=== PATIENT | female | born 1955 | race Caucasian/White ===

== ENCOUNTER 2020-06-18 08:01 | Day surgery (SDC) | payer OTHER, SELFPAY ==
[~2020-06-18] VITALS: Ht 147.3 cm; Wt 41.7 kg
[2020-06-18] MEDS ORDERED: fentaNYL citrate 0.05 MG/ML VIAL ONE (10:08)
[2020-06-18] MEDS ORDERED: LIDOCAINE 2% 100 MG/5 ML UJET TP ONE ×3 (10:08→13:20)
[2020-06-18] MEDS ORDERED: MIDAZOLAM 2 MG/2 ML VIAL ONE (10:47)
[2020-06-18] MEDS ORDERED: MIDAZOLAM 2 MG/2 ML VIAL IVP ONE (12:15)
[2020-06-18] MEDS ORDERED: fentaNYL citrate 0.05 MG/ML VIAL IVP ONE (12:15)
== END 2020-06-18 12:00 | disposition home or self-care (01) ==
LOC: MDS 08:01 → MMU 08:30 → MDS 12:00
PROVIDERS: ATTEND Internal Medicine Gastroenterology
DX: Z12.11 Encounter for screening for malignant neoplasm of colon (principal); Z87.891 Personal history of nicotine dependence; Z20.828 Contact with and (suspected) exposure to other viral communicable diseases
CPT/HCPCS: 45378; J2250; J3010; U0003